=== PATIENT | female | born 1995 | race African-American/Black ===

== ENCOUNTER 2022-09-22 05:23 | Day surgery (SDC) | payer OTHER ==
[2022-09-18 11:49] VITALS: BMI 28.9
[2022-09-22 09:49] VITALS: RESP 18
[2022-09-22] MEDS ORDERED: MIDAZOLAM HCL 2 MG/2 ML SINGLE DOSE VIAL ONE (15:50)
[2022-09-22] MEDS ORDERED: ceFAZolin SODIUM 1 GM VIAL IVPB ONE (15:58)
[2022-09-22 18:16] VITALS: BP 123/78; PULSE 70; TEMP 97.8
== END 2022-09-22 18:06 | disposition home or self-care (01) ==
LOC: JASU-SURG 05:23
PROVIDERS: ATTEND Obstetrics & Gynecology
PROC: 0UB98ZZ Excision of Uterus, Via Natural or Artificial Opening Endoscopic (ICD-10-PCS; principal; 2022-09-22 11:00)
DX: N92.1 Excessive and frequent menstruation with irregular cycle (principal); N84.0 Polyp of corpus uteri
CPT/HCPCS: 81025; 88305-TC; 94760